=== PATIENT | male | born 1955 | race African-American/Black ===

== ENCOUNTER → 2021-07-09 | Outpatient (CLI) | payer MEDICARE | LOC: SJCVC 13:44 | PROVIDERS: ATTEND Internal Medicine | DX: R93.1 Abnormal findings on diagnostic imaging of heart and coronary circulation (principal); E78.2 Mixed hyperlipidemia; E78.00 Pure hypercholesterolemia, unspecified; I10 Essential (primary) hypertension; Z79.82 Long term (current) use of aspirin; Z79.899 Other long term (current) drug therapy ==